=== PATIENT | female | born 1950 ===

== ENCOUNTER 2018-03-22 06:00 | Day surgery (SDC) | payer OTHER ==
[~2018-03-22 06:00] MED LIST: CIPRO500 MG PO; FLAGYL500MG PO; INTESTINEX1 CA1 PO; ORPH100T PO; PROTONIX20 MG PO; ZANTAC150 M3 PO
== END 2018-03-22 14:00 | disposition home or self-care (01) ==
LOC: CIR.AMB 06:00
DX: R15.9 Full incontinence of feces (principal)
CPT/HCPCS: 64590; C1767

== ENCOUNTER 2018-10-04 16:01 | Emergency (ER) | payer OTHER ==
[~2018-10-04] VITALS: Ht 160 cm; Wt 72.6 kg
[2018-10-04] MEDS ORDERED: HUMALOG100 UNIT/1 (16:13)
[2018-10-04] MEDS ORDERED: JARDIANCE25 MG (16:14)
[2018-10-04] MEDS ORDERED: FENOFIBRATE48 MG (16:14)
[2018-10-04] MEDS ORDERED: LISINOPRIL-HCT1 EAC2 (16:14)
[2018-10-04] MEDS ORDERED: OMEGA 3 1,0001 EACH (16:14)
== END 2018-10-04 20:55 | disposition home or self-care (01) ==
LOC: ER 16:01
DX: R42 Dizziness and giddiness (principal)

== ENCOUNTER → 2023-08-07 | Outpatient (CLI) | payer OTHER ==
[~2023-08-07] MED LIST changes: +FENOFIBRATE48 MG; +HUMALOG100 UNIT/1; +JARDIANCE25 MG; +LISINOPRIL-HCT1 EAC2; +OMEGA 3 1,0001 EACH
== END | disposition home or self-care (01) ==
LOC: SONOGRAMA 14:05
PROVIDERS: ATTEND Surgery
DX: C50.212 Malignant neoplasm of upper-inner quadrant of left female breast (principal)